=== PATIENT | female | born 1990 | race Caucasian/White ===

== ENCOUNTER 2022-02-24 16:23 | Outpatient (REF) | payer OTHER, SELFPAY ==
--- NOTE | ~2022-02-24 | MR_ITS ---
EXAMINATION: MR BRAIN WITHOUT AND WITH CONTRAST CLINICAL INFORMATION: History of pachygyria. Seizure disorder. COMPARISON: None. TECHNIQUE: Multiplanar, multisequence imaging of the brain was acquired on a 3 Camilla magnet before and after the intravenous administration of 7 mL of Gadavist. FINDINGS: No diffusion abnormalities are identified to suggest an acute infarct. The ventricles are normal in size. No mass effect or midline shift is seen. No extra-axial fluid collections are seen. The brainstem and cerebellum are normal. There is no abnormal leptomeningeal enhancement. Right parietal and posterosuperior temporal pachygyria present with a patchy area of T2 hyperintense signal abnormality in the underlying white matter of the right temporoparietal lobes. No abnormal mass effect or pathologic enhancement evident. The hippocampi are normal in appearance. A small focus of susceptibility artifact in the cortical phillips matter of the right parietal lobe at the site of pachygyria may be due to chronic mineralization or a small microhemorrhage. The craniovertebral junction, marrow signal, and midline structures are normal. The orbits and pituitary axis appear normal. The major intracranial flow voids at the level of the [place] are preserved. The dural venous sinus flow voids are maintained. The mastoid air cells and paranasal sinuses are well aerated. 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 Punctate microhemorrhage versus focus of mineralization in the right parietal cortical phillips matter. No abnormal enhancement. Otherwise, no hippocampal pathology or acute intracranial process.
== END 2022-02-24 16:24 | disposition home or self-care (01) ==
LOC: HO.MRI 16:23
PROVIDERS: PCP Registered Nurse; Visit Provider Psychiatry & Neurology Neurology
DX: G40.909 Epilepsy, unspecified, not intractable, without status epilepticus (principal)
CPT/HCPCS: 70553; A9585